=== PATIENT | male | born 1995 | race Caucasian/White ===

== ENCOUNTER 2019-05-18 20:39 | Emergency (ER) | payer BC, SELFPAY ==
[2019-05-18 20:40] VITALS: BP 112/79; PULSE 103; RESP 15; TEMP 38.2; O2SAT 95; BMI 25.8
[2019-05-18] MEDS: Ibuprofen 600 MG Tablet PO (21:36)
--- NOTE | 2019-05-18 22:11 | ED.VISSUMM ---
- ER Visit Summary Date of Service: 05/18/19 Chief Complaint: Fever History of Present Illness: The patient is a 23 M with a fever since yesterday evening. He reports neck pain, headache, body aches, dizziness, coughing, and chills. He also has a sore throat. He is taking DayQuil and NyQuil. He is otherwise healthy. No travel. No rashes, tick bites, etc. Physical Examination: Temperature 100.8. Heart rate 103. Otherwise vitals normal. Patient is alert and oriented. No acute distress. HEENT exam unremarkable. Neck is nontender. Good range of motion. No meningeal signs. Heart regular. Lungs clear. Abdomen soft and nontender. No CVA tenderness. Skin appears normal. Good range of motion, strength, sensation. Cranial nerves grossly intact. No focal or lateralizing neurologic abnormalities grossly. NIH stroke scale is 0. Test Results: Strep test was negative. Emergency Department Course and Treatment: Patient symptoms are consistent with a viral illness. His strep test was negative. I do not believe he has bacterial meningitis based on his exam and symptoms. I do not believe the risks of lumbar puncture outweigh any potential benefits. There is no indication for any other diagnostic testing based on his history and exam. Patient was advised to use Tylenol and/or Motrin for fevers. Stay hydrated. Follow-up with his primary care doctor or return for any new or worsening issues. He was given a work note. Treatment Plan: As above Disposition: Discharge Impression: 1. Febrile illness This note was generated with [employer] dictation software. It may contain incorrect words, spelling, and punctuation that were not noted in review of the chart prior to signing ED Disposition - Plan for ED Patient: Referrals: Care Physician,No Primary [Primary Care Provider] -
--- NOTE | 2019-05-18 22:14 | ED.DEP ---
ED Disposition - Plan for ED Patient: Instructions: FEBRILE ILLNESS, Uncertain Cause (Adult) Referrals: Ashley Norwood [NON-STAFF] - As Needed
[2019-05-18 22:18] VITALS: RESP 14
== END 2019-05-18 22:20 | disposition home or self-care (01) ==
LOC: ED 21:38
PROVIDERS: Emergency Provider Emergency Medicine
DX: R50.9 Fever, unspecified (principal); J02.9 Acute pharyngitis, unspecified; R42 Dizziness and giddiness; M54.2 Cervicalgia; R05 Cough; R51 Headache; F17.290 Nicotine dependence, other tobacco product, uncomplicated
CPT/HCPCS: 87880; 99283